=== PATIENT | male | born 1995 | race Caucasian/White ===

== ENCOUNTER 2018-03-09 09:52 | Emergency (ER) | payer OTHER ==
[~2018-03-09] VITALS: Ht 188 cm; Wt 72.4 kg
[~2018-03-09 09:52] MED LIST: PREDNISONE10 M1 PO; ZITHROMAX Z-PA250 MG PO
[2018-03-09 10:30] LABS: HEMATOCRIT 41.6 % (38.0-50.0); HEMOGLOBIN 14.9 G/DL (12.5-16.6); MCH 30.8 PG (29.0-34.0); MCHC 35.8 G/DL (30.0-36.0); MCV 86.1 FL (86-99); PLATELET COUNT 182 K/uL (156-360); RBC DIS.WIDTH-CV 11.6 % (11.8-14.6); RBC DIS.WIDTH-SD 36.2 % (39-53); RED BLOOD COUNT 4.83 M/uL (4.00-5.50); WHITE BLOOD COUNT 6.2 K/uL (4.1-10.2)
[2018-03-09 10:40] LABS: CHLORIDE 104 mEq/L (99-109); POTASSIUM 4.2 mEq/L (3.7-5.4); SODIUM 139 mEq/L (136-147)
[2018-03-09 10:42] LABS: GLUCOSE 98 mg/dL (70-99)
[2018-03-09 10:46] LABS: CREATININE 0.9 mg/dL (0.6-1.3); GFR ESTIMATE (CALCULATED) > 59 mL/min/ (58.99-99999)
[2018-03-09 10:47] LABS: UREA NITROGEN (BUN) 16 mg/dL (9-23)
[2018-03-09 10:50] LABS: TROP-I INTERPRETATION NEGATIVE; TROPONIN-I < 0.01 ng/mL (0.0-0.30)
[2018-03-09 11:40] LABS: D-DIMER ELISA < 150.00 ng/mLDDU (<230)
[2018-03-09] MEDS ORDERED: MOTRIN800 MG PO (12:14)
[2018-03-09 12:19] VITALS: BP 115/71
== END 2018-03-09 12:26 | disposition home or self-care (01) ==
LOC: EME 09:52
DX: R07.89 Other chest pain (principal); Z87.891 Personal history of nicotine dependence; Z88.0 Allergy status to penicillin
CPT/HCPCS: 71046; 80048; 84484; 85027; 85379; 93005; 99281; 99284